=== PATIENT | male | born 1985 | race Caucasian/White ===

== ENCOUNTER 2021-05-07 11:54 | Emergency (ER) | payer OTHER ==
[~2021-05-07] VITALS: Ht 172.7 cm; Wt 99.8 kg
[2021-05-07 13:44] LABS: BASOPHILS 0.6 % (0.0-2.0); EOSINOPHILS 1.3 % (0.0-3.0); HEMOGLOBIN 16.1 gm/dL (14.0-18.0); LYMPHOCYTES 20.6 % (24.0-44.0); MCH 29.8 pg (26.0-34.0); MCHC 32.9 g/dL (28.0-37.0); MCV 90.8 fL (80.0-100.0); MONOCYTES 7.5 % (1.0-8.0); PLATELET COUNT 290 thou/uL (150-400); RDW 13.4 % (10.5-14.5)
[2021-05-07 13:54] LABS: CALCIUM 8.8 mg/dL (8.5-10.1); CREATININE 1.1 mg/dL (0.7-1.3); POTASSIUM 4.1 mmol/L (3.5-5.1)
[2021-05-07 15:46] VITALS: BP 112/69
== END 2021-05-07 15:48 | disposition home or self-care (01) ==
LOC: ER 11:54
PROVIDERS: Emergency Medicine
DX: R51.9 Headache, unspecified (principal); F17.220 Nicotine dependence, chewing tobacco, uncomplicated